=== PATIENT | female | born 1995 | race Two or more races ===

== ENCOUNTER 2017-12-04 21:22 | Emergency (ER) | payer BC ==
[2017-12-04] MEDS ORDERED: NS 1,000 ML IV ONE ×2 (22:15→22:50)
[2017-12-04] MEDS ORDERED: ONDANSETRON 4 MG/2 ML VIAL IVP ONE (22:15)
--- NOTE | 2017-12-04 22:17 | EDPHY ---
H & P Stated Complaint: n/v/d Time Seen by Provider: 12/04/17 21:49 HPI/ROS: Chief Complaint: Nausea, vomiting, diarrhea HPI: 22-year-old female who is visiting from out of town. She began feeling some nausea about 25 hr ago. No ill tonight last night she woke up and vomited 3 times in the went back to bed. This morning she got up and was feeling improved over the course today began having worsening nausea and vomiting. She has had multiple episodes of diarrhea. She did go to Urgent Care today and they gave her some oral Zofran was feeling better. He then drove for miles of the [place] and she had worsening nausea vomiting. No shortness of breath. No coffee grounds or blood in her vomit. No dark tarry stools or blood in her diarrhea. He occasionally has some very mild crampy abdominal pain but largely is only complaining of nausea or vomiting. Does not have a history of the same. No prior abdominal surgeries. No fevers or chills. She also tried marijuana yesterday for the 1st time. Last menstrual cycle ended 3 days ago was normal. Does not believe she is . ROS: 10 point Review of Systems is negative except as noted in the HPI. PMH: Denies Social History: No smoking, occasional alcohol Family History: non-contributory Physical Exam: Gen: Awake, Alert, No Distress HEENT: Nose: no rhinorrhea Eyes: PERRLA, EOMI Mouth: Moist mucosa Neck: Supple, no JVD Chest: nontender, lungs clear to auscultation Heart: S1, S2 normal, no murmur Abd: Soft, non-tender, no guarding Back: no CVA tenderness, no midline tenderness Ext: no edema, non-tender Skin: no rash Neuro: CN II-XII intact, Sensation grossly intact, Strength 5/5 in bilateral upper and lower extremities - Personal History LMP (Females 10-55): 1-7 Days Ago Current Tetanus Diphtheria and Acellular Pertussis (TDAP): Yes - Medical/Surgical History Hx Asthma: No Hx Chronic Respiratory Disease: No Hx Diabetes: No Hx Cardiac Disease: No Hx Renal Disease: No Hx Cirrhosis: No Hx Alcoholism: No Hx HIV/AIDS: No Hx Splenectomy or Spleen Trauma: No Other PMH: anxiety - Social History Smoking Status: Never smoked Constitutional: Initial Vital Signs Temperature (C) 36.5 C 12/04/17 21:34 Heart Rate 80 12/04/17 21:34 Respiratory Rate 20 12/04/17 21:34 Blood Pressure 105/75 12/04/17 21:34 O2 Sat (%) 96 12/04/17 21:34 O2 Delivery Mode Room Air Allergies/Adverse Reactions: No Known Allergies Allergy (Unverified 12/04/17 21:34) Home Medications: Medication Instructions Recorded Venlafaxine HCl 12/04/17 Medical Decision Making ED Course/Re-evaluation: After 1 L of fluid and 4 mg of Zofran patient is still complaining of some nausea but is not having any vomiting. I have ordered an additional L of fluid and 12.5 mg of Phenergan. Patient is feeling improved. No more vomiting. Will discharge with follow-up as an outpatient, return for any concerns. Patient has a soft benign abdomen. No evidence of acute intra-abdominal infection or surgical process. She is resting comfortably. Laboratory evaluations unremarkable. - Data Points Laboratory Results: Laboratory Results 12/04/17 21:50 12/04/17 21:50 12/04/17 12/04/17 12/04/17 21:50 21:50 21:50 WBC 7.27 10^3/uL 10^3/uL (3.80-9.50) RBC 5.05 10^6/uL 10^6/uL (4.18-5.33) Hgb 14.4 g/dL g/dL (12.6-16.3) Hct 41.9 % % (38.0-47.0) MCV 83.0 fL fL (81.5-99.8) MCH 28.5 pg pg (27.9-34.1) MCHC 34.4 g/dL g/dL (32.4-36.7) RDW 12.7 % % (11.5-15.2) Plt Count 263 10^3/uL 10^3/uL (150-400) MPV 9.0 fL fL (8.7-11.7) Neut % (Auto) 74.0 % % (39.3-74.2) Lymph % (Auto) 14.4 % L % (15.0-45.0) Will % (Auto) 10.2 % % (4.5-13.0) Eos % (Auto) 0.7 % % (0.6-7.6) Baso % (Auto) 0.3 % % (0.3-1.7) Nucleat RBC Rel Count 0.0 % % (0.0-0.2) Absolute Neuts (auto) 5.38 10^3/uL 10^3/uL (1.70-6.50) Absolute Lymphs (auto) 1.05 10^3/uL 10^3/uL (1.00-3.00) Absolute Monos (auto) 0.74 10^3/uL 10^3/uL (0.30-0.80) Absolute Eos (auto) 0.05 10^3/uL 10^3/uL (0.03-0.40) Absolute Basos (auto) 0.02 10^3/uL 10^3/uL (0.02-0.10) Absolute Nucleated RBC 0.00 10^3/uL 10^3/uL (0-0.01) Immature Gran % 0.4 % % (0.0-1.1) Immature Gran # 0.03 10^3/uL 10^3/uL (0.00-0.10) Sodium 138 mEq/L mEq/L (135-145) Potassium 3.8 mEq/L mEq/L (3.3-5.0) Chloride 106 mEq/L mEq/L (97-110) Carbon Dioxide 25 mEq/l mEq/l (22-31) Anion Gap 7 mEq/L L mEq/L (8-16) BUN 12 mg/dL mg/dL (7-23) Creatinine 0.7 mg/dL mg/dL (0.6-1.0) Estimated GFR > 60 Glucose 91 mg/dL mg/dL (70-100) Calcium 9.3 mg/dL mg/dL (8.5-10.4) Beta HCG, Qual NEGATIVE Medications Given: Discontinued Medications Sodium Chloride (Ns) 1,000 mls @ 0 mls/hr IV ONCE ONE; Wide Open PRN Reason: Protocol Stop: 12/04/17 22:16 Last Admin: 12/04/17 22:23 Dose: 1,000 mls Sodium Chloride (Ns) 1,000 mls @ 0 mls/hr IV ONCE ONE; Wide Open PRN Reason: Protocol Stop: 12/04/17 22:51 Last Admin: 12/04/17 22:56 Dose: 1,000 mls Lorazepam (Ativan Injection) 0.5 mg IVP EDNOW ONE Stop: 12/04/17 23:52 Last Admin: 12/05/17 00:00 Dose: 0.5 mg Ondansetron HCl (Zofran) 4 mg IVP EDNOW ONE Stop: 12/04/17 22:16 Last Admin: 12/04/17 22:22 Dose: 4 mg Promethazine HCl (Phenergan) 12.5 mg IVP ONCE ONE Stop: 12/04/17 22:52 Last Admin: 12/04/17 22:54 Dose: 12.5 mg Departure - Departure Disposition: Home, Routine, Self-Care Clinical Impression: Acute gastroenteritis Condition: Good Instructions: Gastroenteritis (ED), Acute Nausea and Vomiting (ED) Additional Instructions: You may continue to take the Zofran as prescribed from the urgent care as needed for nausea vomiting. Return to the emergency department for increasing fevers or chills, nausea, vomiting, abdominal pain, or any other concerns. Follow up with primary care physician when she returns home if any of your symptoms persist. Referrals: LORRAINE SAMANO [Other] - As per Instructions
[2017-12-04 22:24] LABS: PLATELET COUNT 263 10^3/uL (150-400)
[2017-12-04] MEDS ORDERED: PROMETHAZINE HCL 25 MG/ML INJ IVP ONE (22:51)
[2017-12-04] MEDS ORDERED: LORazepam 2 MG/ML INJ IVP ONE (23:51)
[2017-12-05 00:03] VITALS: BP 108/74
== END 2017-12-05 01:20 | disposition home or self-care (01) ==
DX: K52.9 Noninfective gastroenteritis and colitis, unspecified (principal); E86.9 Volume depletion, unspecified
CPT/HCPCS: 96374; J2060; J2405; J2550